=== PATIENT | female | born 1945 | race Two or more races ===

== ENCOUNTER 2019-03-18 08:49 | Emergency (ER) | payer OTHER ==
[~2019-03-18] VITALS: Ht 160 cm; Wt 86.2 kg
--- NOTE | 2019-03-18 08:49 | NUR ---
"BIBRA 59 [facility] FOR ALTERED MENTAL STATUS; USUALLY AOX4" PT ALERT, CONFUSED, PT ON MONITOR, VSS, NAD NOTED, PENDING MD GALLEGOS
[2019-03-18] MEDS ORDERED: IV NS 0.9% 500 ML BAG IV ONE (09:30)
[2019-03-18 09:51] LABS: APPEARANCE,URINE Cloudy (CLEAR); BILIRUBIN,URINE SMALL (NEGATIVE); BLOOD, URINE Small Ery/uL (NEGATIVE); COLOR,URINE Yellow (YELLOW); KETONES,URINE Trace (NEGATIVE); LEUKOCYTE ESTERASE ,URINE Trace (NEGATIVE); NITRITE, URINE Negative (NEGATIVE); PH,URINE 5.5 (5.0-8.0); PROTEIN,URINE 100 mg/dl (NEGATIVE); UGLUCOSE Negative (NEGATIVE)
[2019-03-18] MEDS ORDERED: LORAZEPAM INJ 2 MG/ML VIAL ONE (09:53)
[2019-03-18 09:54] LABS: BASOPHILS # (AUTO) 0.1 /CMM (0.0-0.2); BASOPHILS % (AUTO) 1.1 % (0.0-2.0); EOSINOPHILS % (AUTO) 0.8 % (0.0-6.0); HEMATOCRIT 30 % (33-45); LYMPHOCYTES # (AUTO) 1.5 /CMM (0.8-4.8); LYMPHOCYTES % (AUTO) 22.7 % (20.0-44.0); MEAN CORPUSCULAR HGB CONC 30 g/dl (31.0-36.0); MEAN CORPUSCULAR VOLUME 68 fL (82-100); MONOCYTES # (AUTO) 0.5 /CMM (0.1-1.30); MONOCYTES % (AUTO) 8.1 % (2.0-12.0); NEUTROPHILS # (AUTO) 4.5 /CMM (1.8-8.9); NEUTROPHILS % (AUTO) 67.3 % (43.0-81.0); PLATELET COUNT (AUTO) 194 /CMM (150-450); RED BLOOD CELL COUNT(AUTO) 4.36 MIL/uL (4.0-5.2); WHITE BLOOD COUNT (AUTO) 6.6 K/uL (4.3-11.0)
[2019-03-18 09:59] LABS: CALCIUM, SERUM 8.7 mg/dL (8.5-10.1); CARBON DIOXIDE 21 mmol/L (21-32); CHLORIDE 106 mmol/L (98-107); CREATININE 0.9 mg/dL (0.6-1.3); GLUCOSE 120 mg/dL (74-106); POTASSIUM 4.1 mmol/L (3.5-5.1); SODIUM SERUM 140 mmol/L (136-145); UREA NITROGEN, BLOOD 9 mg/dL (7-18)
[2019-03-18] MEDS ORDERED: LORAZEPAM INJ 2 MG/ML VIAL IV ONE (10:00)
[2019-03-18 10:01] LABS: SQUAMOUS EPITHELIAL CELL,UR Many /HPF (None Seen)
[2019-03-18 10:02] LABS: BACTERIA,URINE Many /HPF (None Seen); MUCUS,URINE Moderate /LPF (None Seen)
[2019-03-18 10:03] LABS: WBC,URINE 21-50 /HPF (0-3)
[2019-03-18] MEDS ORDERED: METO25TA20 PO (10:04)
[2019-03-18] MEDS ORDERED: FLUT9.9S NS (10:04)
[2019-03-18] MEDS ORDERED: ASPI-1169 PO (10:04)
[2019-03-18] MEDS ORDERED: FERR324T PO (10:04)
[2019-03-18] MEDS ORDERED: ERGO500014 PO (10:04)
[2019-03-18 10:06] LABS: ACETAMINOPHEN < 2 ug/ml (10-30); ALANINE AMINOTRANSFERASE 22 U/L (12-78); ALBUMIN 3.5 g/dL (3.4-5.0); ALCOHOL, BLOOD < 3 mg/dL (0-0); ALKALINE PHOSPHATASE 104 U/L (46-116); ASPARTATE AMINOTRANSFERASE 19 U/L (15-37); BILIRUBIN,DIRECT 0.3 mg/dL (0.0-0.2); BILIRUBIN,TOTAL 1.1 mg/dL (0.2-1.0); SALICYLATE < 2.8 mg/dL (2.8-20.0); TOTAL PROTEIN, SERUM 6.8 g/dL (6.4-8.2)
[2019-03-18 10:15] LABS: SERUM AMMONIA 12 umol/L (11-32)
[2019-03-18 10:25] LABS: LYMPHOCYTES % (MANUAL) 17 % (16-48); MONOCYTES % (MANUAL) 4 % (0-11.0); NEUTROPHILS % (MANUAL) 79 (42-76)
[2019-03-18] MEDS ORDERED: DILTIAZEM HCL 25 MG IV IV ONE ×2 (11:30→15:30)
[2019-03-18] MEDS ORDERED: CEFTRIAXONE 1GM BAG (ER ONLY) 1 GM/50 ML PIGGYBACK IV ONE (11:30)
[2019-03-18] MEDS ORDERED: FUROSEMIDE 40 MG/4 ML VIAL IV ONE ×2 (11:30→15:30)
[2019-03-18] MEDS ORDERED: CEFTRIAXONE 1GM BAG (ER ONLY) 50 ML IV ONE (11:38)
[2019-03-18] MEDS ORDERED: FUROSEMIDE 40 MG/4 ML VIAL ONE ×2 (11:38→15:07)
[2019-03-18] MEDS ORDERED: DILTIAZEM HCL 50 MG IV ONE (11:39)
[2019-03-18] MEDS ORDERED: ASPIRIN 300 MG/SUPP.RECT RC ONE ×2 (12:00→12:12)
--- NOTE | 2019-03-18 12:06 | NUR ---
[facility] MAKERMGR JORGE CALLED FOR CLINICALS WILL CALL BACK FOR -
--- NOTE | 2019-03-18 14:34 | NUR ---
TRANSFER INFO: ZANA JORGE GOING TO [facility] ROOM: [id number] NUMBER FOR REPORT: [phone]
[2019-03-18] MEDS ORDERED: DILTIAZEM HCL 25 MG IV ONE (15:07)
--- NOTE | 2019-03-18 15:31 | NUR ---
amb eta [phone]
--- NOTE | 2019-03-18 15:42 | NUR ---
called for report, nurse maik khanna at this time. will call back, aware that pt's transport is here
--- NOTE | 2019-03-18 15:52 | NUR ---
report given to maik pelletier for que at [facility]
[2019-03-18 16:01] VITALS: BP 141/83
--- NOTE | 2019-03-18 16:08 | NUR ---
PT LEFT [facility]IA [facility], PT LEFT IN STABLE CONDITION, REPORT GIVEN TO [facility]B STAFF. VSS.
== END 2019-03-18 16:09 | disposition short-term general hospital (02) ==
LOC: ER 08:59
DX: I48.91 Unspecified atrial fibrillation (principal); N39.0 Urinary tract infection, site not specified; I11.0 Hypertensive heart disease with heart failure; I50.9 Heart failure, unspecified; R41.82 Altered mental status, unspecified; F17.200 Nicotine dependence, unspecified, uncomplicated; Z79.82 Long term (current) use of aspirin; Z79.899 Other long term (current) drug therapy
CPT/HCPCS: 36415; 51702; 70450; 71045; 80048; 80076; 80305; 80307; 80329; 81001; 82140; 83605 ×2; 83880; 84443; 84484; 85025; 85730; 87040; 87081; 87086; 93005; 96361; 96365; 96375; 96376; 99291; G0480; J0696; J1940 ×2; J2060; J3490 ×2; J7040; 81000-TC; 82962-TC

== ENCOUNTER 2024-01-25 22:59 | Inpatient (IN) | payer OTHER, MEDICAID ==
[~2024-01-25] VITALS: Ht 160 cm; Wt 74.8 kg
[~2024-01-25 22:59] MED LIST: ASPI-1169 PO; ERGO500014 PO; FERR324T PO; FLUT9.9S NS; METO25TA20 PO
[2024-01-26] MEDS ORDERED: KETOROLAC TROMETHAMINE 15 MG/ML VIAL ONE (00:14)
[2024-01-26] MEDS: KETOROLAC TROMETHAMINE 15 MG/ML VIAL IV ONE (00:24)
[2024-01-26 00:36] LABS: BASOPHILS # (AUTO) 0.1 K/uL (0.0-0.2); BASOPHILS % (AUTO) 1.3 % (0.0-2.0); EOSINOPHILS # (AUTO) 0.1 K/uL (0.0-0.7); EOSINOPHILS % (AUTO) 1.3 % (0.0-6.0); HEMATOCRIT 36 % (33-45); HEMOGLOBIN 11.2 g/dL (11.5-14.8); LYMPHOCYTES # (AUTO) 1.1 K/uL (0.8-4.8); LYMPHOCYTES % (AUTO) 17.2 % (20.0-44.0); MEAN CORPUSCULAR HEMOGLOBIN 23 PG (26.0-33.0); MEAN CORPUSCULAR HGB CONC 32 g/dl (31.0-36.0); MEAN CORPUSCULAR VOLUME 74 fL (82-100); MONOCYTES # (AUTO) 0.6 K/uL (0.1-1.30); MONOCYTES % (AUTO) 8.8 % (2.0-12.0); NEUTROPHILS # (AUTO) 4.5 K/uL (1.8-8.9); NEUTROPHILS % (AUTO) 71.4 % (43.0-81.0); PLATELET COUNT (AUTO) 150 K/uL (150-450); RED BLOOD CELL COUNT(AUTO) 4.81 MIL/uL (4.0-5.2); RED CELL DISTRIBUTION WIDTH 19.2 % (11.5-15.0); WHITE BLOOD COUNT (AUTO) 6.3 K/uL (4.3-11.0)
[2024-01-26 00:56] LABS: CALCIUM, SERUM 9.5 mg/dL (8.5-10.1); CARBON DIOXIDE 26 mmol/L (21-32); CHLORIDE 108 mmol/L (98-107); CREATININE 0.7 mg/dL (0.6-1.3); GLUCOSE 111 mg/dL (74-106); POTASSIUM 3.8 mmol/L (3.5-5.1); SODIUM SERUM 144 mmol/L (136-145); UREA NITROGEN, BLOOD 8 mg/dL (7-18)
[2024-01-26 01:02] LABS: ALANINE AMINOTRANSFERASE 27 U/L (12-78); ALBUMIN 2.8 g/dL (3.4-5.0); ALKALINE PHOSPHATASE 82 U/L (46-116); ASPARTATE AMINOTRANSFERASE 33 U/L (15-37); BILIRUBIN,DIRECT 0.2 mg/dL (0.0-0.2); BILIRUBIN,TOTAL 0.8 mg/dL (0.2-1.0); LIPASE 17 U/L (16-77); TOTAL PROTEIN, SERUM 6.4 g/dL (6.4-8.2)
[2024-01-26] MEDS ORDERED: IOHEXOL-300 100 ML VIAL IV ONE (01:29)
[2024-01-26] MEDS ORDERED: CT SWABBABLE VALVE TRANS SET 1 EA INFUS.SET MC ONE (01:29)
[2024-01-26] MEDS ORDERED: IV NS 0.9% 250 ML IV ONE (01:30)
[2024-01-26 02:11] LABS: OCCULT BLOOD STOOL NEGATIVE (NEGATIVE)
[2024-01-26 03:06] LABS: BASOPHILS # (AUTO) 0.1 K/uL (0.0-0.2); BASOPHILS % (AUTO) 1.1 % (0.0-2.0); EOSINOPHILS # (AUTO) 0.1 K/uL (0.0-0.7); EOSINOPHILS % (AUTO) 1.4 % (0.0-6.0); HEMATOCRIT 34 % (33-45); HEMOGLOBIN 10.5 g/dL (11.5-14.8); LYMPHOCYTES % (AUTO) 17.2 % (20.0-44.0); MEAN CORPUSCULAR HEMOGLOBIN 23 PG (26.0-33.0); MEAN CORPUSCULAR HGB CONC 31 g/dl (31.0-36.0); MEAN CORPUSCULAR VOLUME 75 fL (82-100); MONOCYTES # (AUTO) 0.5 K/uL (0.1-1.30); MONOCYTES % (AUTO) 8.4 % (2.0-12.0); NEUTROPHILS # (AUTO) 4.3 K/uL (1.8-8.9); NEUTROPHILS % (AUTO) 71.9 % (43.0-81.0); PLATELET COUNT (AUTO) 143 K/uL (150-450); RED BLOOD CELL COUNT(AUTO) 4.53 MIL/uL (4.0-5.2); RED CELL DISTRIBUTION WIDTH 19.1 % (11.5-15.0)
[2024-01-26 04:15] VITALS: BP 165/96; TEMP 97.9
[2024-01-26] MEDS ORDERED: ONDANSETRON HCL/PF 4 MG/2 ML VIAL IVP PRN (05:30)
[2024-01-26] MEDS ORDERED: Z GUARD REMEDY 4 OZ OINT TP PRN (05:30)
[2024-01-26] MEDS ORDERED: ACETAMINOPHEN 325 MG TABLET PO PRN (05:30)
[2024-01-26] MEDS ORDERED: MAG HYDROX/AL HYDROX/SIMETH 30 ML UDC PO PRN (05:30)
[2024-01-26] MEDS ORDERED: ZOLPIDEM TARTRATE 5 MG TABLET PO PRN (05:30)
[2024-01-26] MEDS ORDERED: MAGNESIUM HYDROXIDE 30 ML UDC PO PRN (05:30)
[2024-01-26] MEDS: IV NS 0.9% 1,000 ML IV PRN (06:21)
[2024-01-26] MEDS ORDERED: ERGO500093 PO (07:33)
[2024-01-26] MEDS ORDERED: METO-358 PO (07:33)
[2024-01-26 08:00] VITALS: BP 162/99; TEMP 98.1; O2SAT 96
[2024-01-26] MEDS: PANTOPRAZOLE 40 MG VIAL IV SCH (09:05)
[2024-01-26] MEDS: NICOTINE PATCH (21MG) 21 MG PATCH.TD24 TD SCH (12:32)
[2024-01-26] MEDS: SOD FERRIC GLUC 125 MG in IV NS 0.9% 100 ML IV SCH (13:48)
[2024-01-26] MEDS ORDERED: ANESTHESIA TRAY IN PYXIS 1 EA TRAY MC ONE (14:54)
[2024-01-26 14:55] LABS: BASOPHILS # (AUTO) 0.1 K/uL (0.0-0.2); EOSINOPHILS # (AUTO) 0.1 K/uL (0.0-0.7); EOSINOPHILS % (AUTO) 2.2 % (0.0-6.0); HEMATOCRIT 33 % (33-45); HEMOGLOBIN 10.5 g/dL (11.5-14.8); LYMPHOCYTES # (AUTO) 1.4 K/uL (0.8-4.8); LYMPHOCYTES % (AUTO) 24.4 % (20.0-44.0); MEAN CORPUSCULAR HEMOGLOBIN 24 PG (26.0-33.0); MEAN CORPUSCULAR HGB CONC 32 g/dl (31.0-36.0); MEAN CORPUSCULAR VOLUME 74 fL (82-100); MONOCYTES # (AUTO) 0.4 K/uL (0.1-1.30); MONOCYTES % (AUTO) 7.8 % (2.0-12.0); NEUTROPHILS # (AUTO) 3.7 K/uL (1.8-8.9); NEUTROPHILS % (AUTO) 64.6 % (43.0-81.0); PLATELET COUNT (AUTO) 145 K/uL (150-450); RED BLOOD CELL COUNT(AUTO) 4.45 MIL/uL (4.0-5.2); RED CELL DISTRIBUTION WIDTH 18.9 % (11.5-15.0); WHITE BLOOD COUNT (AUTO) 5.7 K/uL (4.3-11.0)
[2024-01-26 15:09] LABS: INR 1.02 (0.91-1.10); PARTIAL THROMBOPLASTIN TIME 27.3 SEC (24.3-34.3); PROTHROMBIN TIME 10.8 SECS (9.2-11.1)
[2024-01-26 15:11] LABS: ALBUMIN 2.6 g/dL (3.4-5.0); BILIRUBIN,DIRECT 0.2 mg/dL (0.0-0.2); BILIRUBIN,TOTAL 0.7 mg/dL (0.2-1.0); CALCIUM, SERUM 8.7 mg/dL (8.5-10.1); CREATININE 0.7 mg/dL (0.6-1.3); MAGNESIUM 1.9 mg/dL (1.8-2.4); PHOSPHORUS 3.5 mg/dL (2.5-4.9); POTASSIUM 3.1 mmol/L (3.5-5.1); TOTAL PROTEIN, SERUM 5.7 g/dL (6.4-8.2)
[2024-01-26 15:17] LABS: THYROID STIMULATING HORMONE 0.98 uIU/mL (0.358-3.74)
[2024-01-26 16:00] VITALS: BP 174/97; TEMP 97.7; O2SAT 97
[2024-01-26 16:01] LABS: EOSINOPHILS % (MANUAL) 3 % (0-4); LYMPHOCYTES % (MANUAL) 24 % (16-48); MONOCYTES % (MANUAL) 4 % (0-11.0); NEUTROPHILS % (MANUAL) 69 (42-76)
[2024-01-26 16:02] LABS: ANISOCYTOSIS 1+; OVALOCYTES 1+; PLATELET ESTIMATE ADEQUATE; TEAR DROP CELLS 1+
[2024-01-26 16:25] LABS: CALCIUM, SERUM 8.7 mg/dL (8.5-10.1); CREATININE 0.7 mg/dL (0.6-1.3); POTASSIUM 3.1 mmol/L (3.5-5.1)
[2024-01-26 16:49] LABS: IRON, SERUM 103 ug/dl (50-175); TOTAL IRON BINDING CAPACITY 344 ug/dl (250-450)
[2024-01-26 17:00] LABS: FERRITIN 10 ng/mL (8-388)
[2024-01-26] MEDS: POTASSIUM CL. PREMIX PERIPHER. 50 ML IV SCH (17:17)
[2024-01-27] VITALS: BP 174/97; TEMP 97.7; O2SAT 97
[2024-01-27 08:00] VITALS: BP_SYST 173; BP_DIAS 123; BP_DIAS 99; TEMP 96.7; TEMP 97; O2SAT 99
[2024-01-27] MEDS: hydrALAZINE HCL IV 20 MG VIAL IV PRN (08:54)
[2024-01-27] MEDS: METOPROLOL SUCCINATE 50 MG TAB.SR.24H PO SCH (08:55)
[2024-01-27 09:14] LABS: BASOPHILS # (AUTO) 0.1 K/uL (0.0-0.2); BASOPHILS % (AUTO) 1.1 % (0.0-2.0); EOSINOPHILS # (AUTO) 0.1 K/uL (0.0-0.7); EOSINOPHILS % (AUTO) 1.3 % (0.0-6.0); HEMATOCRIT 37 % (33-45); HEMOGLOBIN 11.7 g/dL (11.5-14.8); LYMPHOCYTES # (AUTO) 1.1 K/uL (0.8-4.8); LYMPHOCYTES % (AUTO) 17.8 % (20.0-44.0); MEAN CORPUSCULAR HEMOGLOBIN 23 PG (26.0-33.0); MEAN CORPUSCULAR HGB CONC 31 g/dl (31.0-36.0); MEAN CORPUSCULAR VOLUME 74 fL (82-100); MONOCYTES # (AUTO) 0.5 K/uL (0.1-1.30); MONOCYTES % (AUTO) 7.7 % (2.0-12.0); NEUTROPHILS # (AUTO) 4.4 K/uL (1.8-8.9); NEUTROPHILS % (AUTO) 72.1 % (43.0-81.0); PLATELET COUNT (AUTO) 163 K/uL (150-450); RED BLOOD CELL COUNT(AUTO) 5.01 MIL/uL (4.0-5.2); RED CELL DISTRIBUTION WIDTH 19.3 % (11.5-15.0); WHITE BLOOD COUNT (AUTO) 6.2 K/uL (4.3-11.0)
[2024-01-27 09:21] LABS: CALCIUM, SERUM 9.2 mg/dL (8.5-10.1); CREATININE 0.7 mg/dL (0.6-1.3); POTASSIUM 3.9 mmol/L (3.5-5.1)
[2024-01-27] MEDS: METOPROLOL SUCCINATE 25 MG TAB.SR.24H PO SCH (12:00)
[2024-01-27] MEDS: METOPROLOL SUCCINATE 50 MG TAB.SR.24H PO ONE (12:06)
[2024-01-27] MEDS ORDERED: QUETIAPINE FUMARATE 25 MG TABLET PO PRN (13:00)
[2024-01-27] MEDS: METOPROLOL TARTRATE INJ 5 MG/5 ML AMPUL IVP ONE (13:02)
[2024-01-27] MEDS: LORAZEPAM INJ 2 MG/ML VIAL IV ONE (13:03)
[2024-01-27 16:00] VITALS: BP 154/113; TEMP 97; O2SAT 99
[2024-01-27 16:40] VITALS: BP 154/113; O2SAT 99
[2024-01-27] MEDS: DILTIAZEM HCL 30 MG TABLET PO SCH (17:06)
[2024-01-28] VITALS: BP 136/97; TEMP 98.1; O2SAT 99
[2024-01-28 07:50] LABS: BASOPHILS # (AUTO) 0.1 K/uL (0.0-0.2); BASOPHILS % (AUTO) 1.2 % (0.0-2.0); EOSINOPHILS # (AUTO) 0.1 K/uL (0.0-0.7); EOSINOPHILS % (AUTO) 2.6 % (0.0-6.0); HEMATOCRIT 35 % (33-45); HEMOGLOBIN 10.9 g/dL (11.5-14.8); LYMPHOCYTES # (AUTO) 0.9 K/uL (0.8-4.8); LYMPHOCYTES % (AUTO) 17.4 % (20.0-44.0); MEAN CORPUSCULAR HEMOGLOBIN 23 PG (26.0-33.0); MEAN CORPUSCULAR HGB CONC 31 g/dl (31.0-36.0); MEAN CORPUSCULAR VOLUME 74 fL (82-100); MONOCYTES # (AUTO) 0.4 K/uL (0.1-1.30); MONOCYTES % (AUTO) 7.9 % (2.0-12.0); NEUTROPHILS # (AUTO) 3.7 K/uL (1.8-8.9); NEUTROPHILS % (AUTO) 70.9 % (43.0-81.0); PLATELET COUNT (AUTO) 157 K/uL (150-450); RED BLOOD CELL COUNT(AUTO) 4.69 MIL/uL (4.0-5.2); RED CELL DISTRIBUTION WIDTH 18.5 % (11.5-15.0); WHITE BLOOD COUNT (AUTO) 5.3 K/uL (4.3-11.0)
[2024-01-28 08:00] VITALS: BP 176/99; TEMP 97.6; O2SAT 100
[2024-01-28 08:11] LABS: CALCIUM, SERUM 8.9 mg/dL (8.5-10.1); CARBON DIOXIDE 21 mmol/L (21-32); CHLORIDE 109 mmol/L (98-107); CREATININE 0.6 mg/dL (0.6-1.3); GLUCOSE 81 mg/dL (74-106); MAGNESIUM 2.1 mg/dL (1.8-2.4); PHOSPHORUS 3.2 mg/dL (2.5-4.9); POTASSIUM 3.2 mmol/L (3.5-5.1); SODIUM SERUM 142 mmol/L (136-145); UREA NITROGEN, BLOOD 3 mg/dL (7-18)
[2024-01-28] MEDS: DILTIAZEM HCL 30 MG TABLET PO SCH (08:36)
[2024-01-28] MEDS: POTASSIUM CHLORIDE 20 MEQ TAB.PRT.SR PO SCH (10:35)
[2024-01-28 16:00] VITALS: BP 145/107; TEMP 97.7; O2SAT 97
[2024-01-28 20:00] VITALS: BP 152/99; TEMP 98.4; O2SAT 97
[2024-01-29 06:12] VITALS: BP 148/101; TEMP 98; O2SAT 97
[2024-01-29 07:27] LABS: BASOPHILS # (AUTO) 0.1 K/uL (0.0-0.2); BASOPHILS % (AUTO) 1.2 % (0.0-2.0); EOSINOPHILS # (AUTO) 0.2 K/uL (0.0-0.7); EOSINOPHILS % (AUTO) 2.8 % (0.0-6.0); HEMATOCRIT 35 % (33-45); HEMOGLOBIN 11.2 g/dL (11.5-14.8); LYMPHOCYTES % (AUTO) 17.7 % (20.0-44.0); MEAN CORPUSCULAR HEMOGLOBIN 24 PG (26.0-33.0); MEAN CORPUSCULAR HGB CONC 32 g/dl (31.0-36.0); MEAN CORPUSCULAR VOLUME 74 fL (82-100); MONOCYTES # (AUTO) 0.5 K/uL (0.1-1.30); MONOCYTES % (AUTO) 8.1 % (2.0-12.0); NEUTROPHILS % (AUTO) 70.2 % (43.0-81.0); PLATELET COUNT (AUTO) 169 K/uL (150-450); RED BLOOD CELL COUNT(AUTO) 4.76 MIL/uL (4.0-5.2); WHITE BLOOD COUNT (AUTO) 5.6 K/uL (4.3-11.0)
[2024-01-29 08:00] VITALS: BP 162/93; TEMP 96.9; O2SAT 98
[2024-01-29] MEDS ORDERED: DILT180C66 PO (08:12)
[2024-01-29] MEDS ORDERED: PANT40TA2 PO (08:12)
[2024-01-29] MEDS ORDERED: FERR-68 PO (08:12)
[2024-01-29] MEDS ORDERED: LOSA50TA39 PO (08:12)
[2024-01-29] MEDS ORDERED: METO25TA4 PO (08:16)
[2024-01-29] MEDS ORDERED: Quetiapine Fumarate PO (08:26)
[2024-01-29] MEDS ORDERED: DULO20CA PO (08:26)
[2024-01-29] MEDS: PANTOPRAZOLE 40 MG TABLET.DR PO SCH (08:36)
[2024-01-29 08:37] LABS: CREATININE 0.7 mg/dL (0.6-1.3); MAGNESIUM 2.2 mg/dL (1.8-2.4); POTASSIUM 3.7 mmol/L (3.5-5.1)
[2024-01-29] MEDS: LOSARTAN POTASSIUM 50 MG TABLET PO SCH (08:37)
[2024-01-29] MEDS: DULOXETINE HCL 20 MG CAPSULE.DR PO SCH (08:38)
[2024-01-29 12:00] VITALS: BP_SYST 139; BP_SYST 152; BP_DIAS 100; BP_DIAS 94; TEMP 96.9; O2SAT 98
[2024-01-29 20:00] VITALS: BP 138/84; TEMP 97.9; O2SAT 97
[2024-01-29] MEDS ORDERED: hydrALAZINE HCL 10 MG TABLET PO ONE (20:30)
== END 2024-01-29 22:37 | DRG 378 ==
LOC: ER 23:16 → MEDSG1 01-26 03:05 → TELE1 01-27 12:08
PROVIDERS: ADMIT Nurse Practitioner Family; ATTEND Internal Medicine
DX: K29.01 Acute gastritis with bleeding (principal); D62 Acute posthemorrhagic anemia; E44.0 Moderate protein-calorie malnutrition; I48.20 Chronic atrial fibrillation, unspecified; F01.53 Vascular dementia, unspecified severity, with mood disturbance; F01.511 Vascular dementia, unspecified severity, with agitation; E87.0 Hyperosmolality and hypernatremia; K62.89 Other specified diseases of anus and rectum; Z20.822 Contact with and (suspected) exposure to COVID-19; I69.319 Unspecified symptoms and signs involving cognitive functions following cerebral infarction; I11.0 Hypertensive heart disease with heart failure; I50.9 Heart failure, unspecified; Z79.82 Long term (current) use of aspirin; Z79.899 Other long term (current) drug therapy; F32.9 Major depressive disorder, single episode, unspecified; Z72.0 Tobacco use; D50.9 Iron deficiency anemia, unspecified; E78.5 Hyperlipidemia, unspecified; E86.0 Dehydration; K57.50 Diverticulosis of both small and large intestine without perforation or abscess without bleeding; K44.9 Diaphragmatic hernia without obstruction or gangrene; Z91.199 Patient's noncompliance with other medical treatment and regimen due to unspecified reason; J44.9 Chronic obstructive pulmonary disease, unspecified; E88.09 Other disorders of plasma-protein metabolism, not elsewhere classified; E87.6 Hypokalemia
CPT/HCPCS: 36415; 71045-TC; 80048-TC; 80061-TC; 80076-TC; 82272-TC; 82728-TC; 83540-TC; 83690-TC; 83735-TC; 84100-TC; 84443-TC; 85025-TC; 85730-TC; 86850-TC; 92526; 92611-TC; 93307-TC; 97110-TC; 97535-TC; 98960; A4223; G0378; J0360; J1885; J2060; J2916; J3480; J3490; J7030; J7050; Q9967